=== PATIENT | female | born 1960 | race Caucasian/White ===

== ENCOUNTER 2021-10-19 13:31 | Emergency (ER) | payer OTHER ==
[~2021-10-19] VITALS: Ht 152.4 cm; Wt 51.7 kg
[~2021-10-19 13:31] MED LIST: CALCIUM MAGNES1 EAC2 PO; CYCLOBENZAPRINE10 MG PO; GLUCOSAMINE &1 EACH PO; HM CALCIUM-MAG1 EACH PO; MELOXICAM15 MG PO; ONCE DAILY1 EACH PO; TEMOVATE30 GM TOP; VITAMIN B-121000 MCG PO; VITAMIN C500 M4 PO
[2021-10-19] MEDS ORDERED: PROBIOTIC250 MG PO (13:48)
[2021-10-19] MEDS ORDERED: FISH OIL 1,0001 EACH PO (13:49)
--- OUTSIDE RECORDS SUMMARY | 2021-10-19 16:40 | XMS ---
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 Loretta has no Care Guidelines for this patient. Briseyda VISIT COUNT (12 MO.) 1 KALEB Rudd TOTAL 1 NOTE: Visits indicate total known visits. ED/C VISIT TRACKING (12 MO.) 10/19/2021 13:31 KALEB Roy OR TYPE: Emergency COMPLAINT: - R KNEE PAIN INPATIENT VISIT TRACKING (12 MO.) 08/05/2021 06:10 [facility] GREEN TYPE: Surgical Services DIAGNOSES: - Benign neoplasm of spinal meninges - Paresthesia of skin [email or web address]
== END 2021-10-19 18:57 | disposition home or self-care (01) ==
LOC: ED 13:31
DX: M25.561 Pain in right knee (principal); Z88.2 Allergy status to sulfonamides; Z88.8 Allergy status to other drugs, medicaments and biological substances; Z79.899 Other long term (current) drug therapy
CPT/HCPCS: 73560; 99283-25

== ENCOUNTER 2021-10-26 12:48 | Day surgery (SDC) | payer OTHER ==
[~2021-10-26] VITALS: Ht 152.4 cm; Wt 53.5 kg
[~2021-10-26 12:48] MED LIST changes: +CALCIUM 600+D31 EACH; +CHOLESTYRAMINE378 GM PO; +CITRACAL SOFT1 EACH PO; +FISH OIL 1,0001 EACH PO; +METHOCARBAMOL750 MG PO; +MULTI-VITAMIN1 EACH PO; +NEURONTIN300 MG PO; +PROBIOTIC250 MG PO; +VITAMIN B122500 MC1
[2021-10-26] MEDS ORDERED: VITAMIN C1000 MG PO (13:13)
[2021-10-26] MEDS ORDERED: IRON325 M1 PO (13:13)
--- NOTE | 2021-10-26 14:36 | NUR ---
PT USES CALL LIGHT AND REQUESTS WARM BLANKET. TWO WARM BLANKETS PROVIDED WITH KERI HUGGER PLACED ON WARM. CALL LIGHT WITHIN REACH.
--- NOTE | 2021-10-26 17:29 | NUR ---
10/26/21 1729 Carmelina Huston 1644 PT ARRIVED IN PACU SLEEPY WITH NO C/O'S. 1650 C/O L SIDE/SHOULDER PAIN. ENCOURAGED TO PASS FLATUS. ABD SOFT. AWARE AND AT BEDSIDE. ALL QUESTIONS ANSWERED. 1700 SIPPING ON WATER. NO C/O'S NAUSEA. 1715 GETTING DRESSED WITH STAND BY ASSIST. DC INSTRUCTIONS GIVEN. 1720 LEFT VIA W/C. INSTRUCTIONS GIVEN TO PT/SPOUSE AT CAR. ENCOURAGED PT TO PASS GAS. ABD SOFT.
--- NOTE | 2021-10-28 13:35 | PATH ---
[facility] [address] [place], [place] [address] Signed SPECIMEN(S): A CECUM BIOPSY SPECIMEN(S): B DISTAL COLON BIOPSY SPECIMEN(S): C SIGMOID BIOPSY SPECIMEN(S): D RECTAL BIOPSY SPECIMEN SOURCE: A. CECUM BIOPSY B. DISTAL COLON BIOPSY C. SIGMOID BIOPSY D. RECTAL BIOPSY CLINICAL HISTORY: History of ulcerative colitis, diarrhea; history of GERD. Postop: Normal appearing colon FINAL PATHOLOGIC DIAGNOSIS: A. Colon, cecum, biopsy: - Colonic mucosa with no histopathologic abnormality. - Negative for active, chronic, or microscopic colitis. - Negative for dysplasia or malignancy. B. Colon, distal, biopsy: - Colonic mucosa with no histopathologic abnormality. - Negative for active, chronic, or microscopic colitis. - Negative for dysplasia or malignancy. C. Colon, sigmoid, biopsy: - Colonic mucosa with no histopathologic abnormality. - Negative for active, chronic, or microscopic colitis. - Negative for dysplasia or malignancy. D. Rectum, biopsy: - Colorectal mucosa with no histopathologic abnormality. - Negative for active, chronic, or microscopic colitis. - Negative for dysplasia or malignancy. NAL:cml:C2NR MICROSCOPIC EXAMINATION: Histologic sections of all submitted blocks are examined by light microscopy. These findings, together with the gross examination, support the pathologic diagnosis. GROSS DESCRIPTION: Four specimens are received in four containers, labeled "TH." PATIENT NAME: TEX MOREAU PATHOLOGY DATE OF : 58 REPORT #: [id number] PHYSICIAN: ANAYELI PATHOLOGY PCP: JOAQUINA ORTEZ PAC REPORT IS CONFIDENTIAL AND NOT TO BE RELEASED WITHOUT AUTHORIZATION [facility] [address] [place], [place] [address] Signed A. The specimen, labeled "TH, cecum biopsy," is received in formalin and consists of four rodriguez soft tissue fragment(s) that measure 0.2 cm in greatest dimension. The specimen is entirely submitted in cassette (A1). B. The specimen, labeled "TH, distal colon biopsy," is received in formalin and consists of two rodriguez soft tissue fragment(s) that measure 0.2 cm in greatest dimension. The specimen is entirely submitted in cassette (B1). C. The specimen, labeled "TH, sigmoid colon biopsy," is received in formalin and consists of two rodriguez soft tissue fragment(s) that measure 0.2 cm in greatest dimension. The specimen is entirely submitted in cassette (C1). D. The specimen, labeled "TH, rectum biopsy," is received in formalin and consists of two rodriguez soft tissue fragment(s) that measure 0.2 cm in greatest dimension. The specimen is entirely submitted in cassette (D1). JS (under the direct supervision of a pathologist) The Gross Description was prepared using a voice recognition system. The report was reviewed for accuracy; however, sound-alike word errors, addition and/or deletions may occur. If there is any question about this report, please contact Client Services. PERFORMING LABORATORY: The technical component was performed by [facility], [address] [place] [id number] (Director Client: Rima Meyer MD; CLIA# [id number]). [facility] [address] [address] (CLIA# [id number]). Diagnostician: Christie Roman MD Pathologist Electronically Signed 10/28/2021 Copies: ~ PATIENT NAME: FRANSICO MOREAUIndio NIETO PATHOLOGY DATE OF : 58 REPORT #: [id number] PHYSICIAN: ANAYELI BACH PCP: JOAQUINA ORTEZ PAC REPORT IS CONFIDENTIAL AND NOT TO BE RELEASED WITHOUT AUTHORIZATION
--- NOTE | 2021-10-30 15:47 | OR ---
[facility] [address] [place] [place] [address] Signed DATE OF OPERATION: 10/26/2021 SURGEON: Atul Darling MD PREOPERATIVE DIAGNOSES: 1. Family history of colon cancer (father at 62). 2. Abdominal pain, recent episodes of diarrhea, resolved with aloe vera. 3. Longstanding history of ulcerative colitis, in remission. POSTOPERATIVE DIAGNOSIS: Grossly normal-appearing colon and rectum. PROCEDURE: Total colonoscopy to cecum with multiple biopsies. ANESTHESIA: Intravenous sedation, propofol infusion; Mila Galeana CRNA INDICATIONS: This 61-year-old white woman is now patient of KIARA Martinez. She is well known to me from the past several years, having been diagnosed with ulcerative colitis and treated with anti-inflammatory medications over time. In the most recent year, she tries to avoid any medication for control of symptoms of diarrhea. In the past year or so, she has been taking aloe vera juice, which is generally helpful. Few weeks ago, she had an episode of rather severe abdominal pain, cramping, diarrhea, and so on. There is no associated bleeding. The symptoms have largely resolved. She has undergone spinal surgery in the past year and has had other maladies, but not COVID infection. She is admitted at this time to undergo colonoscopy on the basis of her symptoms and also for surveillance given her family history of colon cancer in her father, who of colon cancer at age 62. She does understand she is at increased risk of colon cancer on that basis, but also on the basis of longstanding history of colitis. The risk of bleeding, infection, and perforation related to colonoscopy was reviewed with her in detail. She understands and wished to proceed. FINDINGS: The prep was quite good. Complete colonoscopy was undertaken to the cecum. The colon was quite redundant and irregular, but ultimately the cecum was clearly intubated and find the ileocecal valve and appendiceal orifice. There was no evidence of overt colitis, diverticular formation, polyps, or cancer. Electronically Signed By: ATUL DARLING MD 10/30/21 1547 PATIENT NAME: TEX MOREAU OPERATIVE REPORT DATE OF : 58 REPORT #: [id number] PHYSICIAN: ATUL DARLING MD PCP: JOAQUINA ORTEZ PAC REPORT IS CONFIDENTIAL AND NOT TO BE RELEASED WITHOUT AUTHORIZATION [facility] [address] [place] [id number] Signed DESCRIPTION OF PROCEDURE: The patient was brought to the endoscopy suite and placed in lateral decubitus position. She was given intravenous sedation with propofol infusional technique as she does have significant nausea and vomiting related to conventional sedation. After satisfactory sedation, digital rectal examination was performed, which was normal. An Olympus video colonoscope was passed into the rectum and manipulated throughout the colon. Passage of the sigmoid and left colon was without much problem and the transverse colon as well, but there likely redundancy or angulation deformity which made passage ultimately to the cecum quite challenging. Ultimately, it was accomplished and clear intubation of the cecum was noted including visualization of the ileocecal valve and appendiceal orifice. Irrigation was undertaken. Biopsies were taken of the cecum. I could not intubate the ileum though brief attempt was made. The scope was withdrawn from that point. Biopsies taken of the right colon, transverse, left and sigmoid areas as well as the rectum. In no area were there diverticular changes, polyps, overt colitis, or cancer. The scope was removed. The patient was taken to the recovery room in good condition. CONCLUDING DIAGNOSIS: If she does have smoldering ulcerative colitis that is not grossly visible. PLAN: She will continue taking her aloe vera juice, which is well tolerated and probably innocuous overall. I will see her back in 6-8 weeks, at which point we will review her pathology reports and clinical course. MD ELZA Calderón/ELIZABETHL /[id number] cc: KIARA Martinez Copies: Electronically Signed By: ATUL DARLING MD 10/30/21 1547 PATIENT NAME: TEX MOREAU OPERATIVE REPORT DATE OF : 58 REPORT #: [id number] PHYSICIAN: ATUL DARLING MD PCP: JOAQUINA ORTEZ PAC REPORT IS CONFIDENTIAL AND NOT TO BE RELEASED WITHOUT AUTHORIZATION [facility] [address] [place], [place] [address] Signed ~ Electronically Signed By: ATUL DARLING MD 10/30/21 1547 PATIENT NAME: TEX MOREAU OPERATIVE REPORT DATE OF : 58 REPORT #: [id number] PHYSICIAN: ATUL DARLING MD PCP: JOAQUINA ORTEZ PAC REPORT IS CONFIDENTIAL AND NOT TO BE RELEASED WITHOUT AUTHORIZATION
== END 2021-10-26 17:20 | disposition home or self-care (01) ==
LOC: DS 12:48 → OPS 12:48 → DS 14:00 → OPS 17:20
PROVIDERS: ATTEND Surgery
PROC: 0DBL8ZZ Excision of Transverse Colon, Via Natural or Artificial Opening Endoscopic (ICD-10-PCS; 2021-10-26)
PROC: 0DBN8ZZ Excision of Sigmoid Colon, Via Natural or Artificial Opening Endoscopic (ICD-10-PCS; 2021-10-26)
PROC: 0DBF8ZZ Excision of Right Large Intestine, Via Natural or Artificial Opening Endoscopic (ICD-10-PCS; 2021-10-26)
PROC: 0DBH8ZZ Excision of Cecum, Via Natural or Artificial Opening Endoscopic (ICD-10-PCS; principal; 2021-10-26 14:00)
DX: R10.9 Unspecified abdominal pain (principal); K21.9 Gastro-esophageal reflux disease without esophagitis; Z80.0 Family history of malignant neoplasm of digestive organs
CPT/HCPCS: J1100; J2001; J2405; J2704